=== PATIENT | male | born 1955 | race Caucasian/White ===

== ENCOUNTER 2018-04-06 05:55 | Day surgery (SDC) | payer OTHER ==
[~2018-04-06] VITALS: Ht 185.4 cm; Wt 80.9 kg
[2018-04-06 06:59] VITALS: Ht 185.4 cm; Wt 80.9 kg
[2018-04-06] MEDS ORDERED: NAPROXEN (07:06)
[2018-04-06] MEDS ORDERED: ATORVASTATIN PO (07:06)
[2018-04-06 07:25] VITALS: BP 132/89; PULSE 59; RESP 18
[2018-04-06] MEDS ORDERED: MIDAZOLAM 1 MG/ML 2 ML INJ ONE ×2 (08:47)
[2018-04-06] MEDS ORDERED: FENTAnyl 50 MCG/ML VIAL ONE (08:47)
[2018-04-06 09:08] VITALS: BP 111/74; PULSE 87; RESP 18
== END 2018-04-06 11:43 | disposition home or self-care (01) ==
LOC: GIL 05:55
PROVIDERS: ATTEND Internal Medicine Gastroenterology
DX: Z12.11 Encounter for screening for malignant neoplasm of colon (principal); D12.5 Benign neoplasm of sigmoid colon; K64.8 Other hemorrhoids; D12.0 Benign neoplasm of cecum; K57.30 Diverticulosis of large intestine without perforation or abscess without bleeding
CPT/HCPCS: 45380; 88305; J2250; J3010; Z7610